=== PATIENT | female | born 1995 | race Caucasian/White ===

== ENCOUNTER 2018-01-19 13:32 | Emergency (ER) | payer OTHER ==
--- NOTE | 2018-01-19 14:52 | PDOC ---
Rapid Medical Evaluation Medical Evaluation: Allergies Allergy/AdvReac Type Severity Reaction Status Date / Time No Known Allergies Allergy Verified 01/11/16 09:00 01/19/18 14:48 I have performed a brief in-person evaluation of this patient. The patient presents with a chief complaint of: lightheaded/shaky, no LOC, was recently dx with anemia by Dr. Ramirez Pertinent physical exam findings: well appearing I have ordered the following: CBC, CMP, T&S The patient will proceed to the ED for further evaluation. Discharge Disposition - Diagnosis Lightheadedness - Referrals - Patient Instructions - Post Discharge Activity
[2018-01-19 14:54] VITALS: BP 120/66; PULSE 91; TEMP 98.4; BMI 18.6
[2018-01-19 15:10] LABS: BASO % 0.4 % (0-2.0); EOS % 0.5 % (0-4.5); HEMATOCRIT 40.1 % (32.4-45.2); HEMOGLOBIN 13.3 GM/dL (10.7-15.3); LYMPH % 29.4 % (8-40); MCH 28.1 pg (25.7-33.7); MCHC 33.1 g/dl (32.0-36.0); MEAN CELL VOLUME 84.9 fl (80-96); MONO % 8.9 % (3.8-10.2); NEUT % 60.8 % (42.8-82.8); PLATELET COUNT 230 K/MM3 (134-434); RBC 4.72 M/mm3 (3.60-5.2); RDW 13.4 % (11.6-15.6); WHITE BLOOD COUNT 4.7 K/mm3 (4.0-10.0)
--- NOTE | 2018-01-19 15:30 | PDOC ---
History of Present Illness - General Chief Complaint: Lightheaded Stated Complaint: ANXIETY, LIGHTHEADED Time Seen by Provider: 01/19/18 14:53 History Source: Patient Exam Limitations: No Limitations - History of Present Illness Initial Comments: 01/19/18 15:30 22F lightheaded/shaky, no LOC, was recently dx with anemia by Dr. Ramirez. Patient feels like this is a panic attack as she had one back in December but not as bad. No obvious stressors. She didn't have the time to see a therapist/psychiatrist yet. Denies chest pain , sob,. Not on control. 01/19/18 17:20 Past History - Past Medical History Allergies/Adverse Reactions: Allergies Allergy/AdvReac Type Severity Reaction Status Date / Time No Known Allergies Allergy Verified 01/11/16 09:00 Home Medications: Ambulatory Orders NK [No Known Home Medication] 01/19/18 Anemia: Yes Asthma: Yes COPD: No - Suicide/Smoking/Psychosocial Hx Smoking History: Never smoked Have you smoked in the past 12 months: No Information on smoking cessation initiated: No Hx Alcohol Use: No Drug/Substance Use Hx: No Substance Use Type: None Review of Systems - Review of Systems Able to Perform ROS?: Yes Is the patient limited Turkmen proficient: No Constitutional: No: Symptoms Reported HEENTM: No: Symptoms Reported Respiratory: No: Symptoms reported Cardiac (ROS): No: Symptoms Reported ABD/GI: No: Symptoms Reported : No: Symptoms Reported Musculoskeletal: No: Symptoms Reported Integumentary: No: Symptoms Reported Neurological: No: Symptoms reported Endocrine: No: Symptoms Reported All Other Systems: Reviewed and Negative *Physical Exam - Vital Signs Last Vital Signs Temp Pulse Resp BP Pulse Ox 98.4 F 91 H 20 120/66 99 01/19/18 14:51 01/19/18 14:51 01/19/18 14:51 01/19/18 14:51 01/19/18 14:51 - Physical Exam General Appearance: Yes: Nourished, Appropriately Dressed. No: Apparent Distress HEENT: positive: EOMI, BULMARO Respiratory/Chest: positive: Lungs Clear, Normal Breath Sounds. negative: Chest Tender Cardiovascular: positive: Regular Rhythm, Regular Rate, S1, S2 Gastrointestinal/Abdominal: positive: Normal Bowel Sounds, Flat, Soft. negative : Tender Musculoskeletal: positive: Normal Inspection. negative: CVA Tenderness Extremity: positive: Normal Capillary Refill, Normal Inspection Integumentary: positive: Normal Color, Dry, Warm ED Treatment Course - LABORATORY CBC & Chemistry Diagram: 01/19/18 15:00 01/19/18 15:00 - ADDITIONAL ORDERS Additional order review: 01/19/18 15:00 RBC 4.72 MCV 84.9 MCHC 33.1 RDW 13.4 MPV 9.0 Neutrophils % 60.8 Lymphocytes % 29.4 Monocytes % 8.9 Eosinophils % 0.5 Basophils % 0.4 Medical Decision Making - Medical Decision Making 01/19/18 17:22 Patient labs within normal limits. No anemia or abnormal chemistry, EKG: normal sinus with right deviation., Not . ok to dc *DC/Admit/Observation/Transfer Diagnosis at time of Disposition: Lightheadedness - Discharge Dispostion Disposition: HOME Condition at time of disposition: Good Admit: No - Referrals Referrals: Kayleigh Nava MD [Primary Care Provider] - - Patient Instructions Printed Discharge Instructions: Anxiety and Panic Attacks (Alternative Therapy) , DI for Panic Disorder Additional Instructions: Come back to the ED for any new, worsening or concerning symptoms. Follow up with your primary care provider. - Post Discharge Activity
[2018-01-19 15:34] LABS: ALBUMIN 4.1 g/dl (3.4-5.0); ALK PHOS 62 U/L (45-117); ANION GAP 6 (8-16); BILIRUBIN,TOTAL 1.1 mg/dL (0.2-1.0); BLOOD UREA NITROGEN 11 mg/dL (7-18); CALCIUM 8.3 mg/dL (8.5-10.1); CHLORIDE 105 mmol/L (98-107); CO2 27 mmol/L (21-32); CREATININE 0.8 mg/dL (0.55-1.02); GLUCOSE,RANDOM 91 mg/dL (74-106); POTASSIUM 3.9 mmol/L (3.5-5.1); SGOT/AST 16 U/L (15-37); SGPT/ALT 15 U/L (12-78); SODIUM 138 mmol/L (136-145); TOT PROT 7.9 g/dl (6.4-8.2)
--- NOTE | 2018-01-19 16:19 | PDOC ---
Attending Attestation - HPI HPI: 01/19/18 16:45 The patient is a 22 year old female with a significant PMH of iron deficiency who presents to the emergency department with lightheadedness and shaking this morning. The patient reports she was worried this might be related to her anemia prompting her to come to the ER. The patient states she had a panic attack in August and reports the shaking felt similar. The patient is not currently seeing a psychiatrist. The patient denies chest pain, shortness of breath, headache and dizziness. Denies fever, chills, nausea, vomit, diarrhea and constipation. Denies dysuria, frequency, urgency and hematuria. Allergies: NKA Past surgical history: None reported. Social history: No reported alcohol, cigarette or drug use. PCP: Dr. Shea <Helene Cool - Last Filed: 01/19/18 16:45> - Resident Resident Name: Nasir Gregorio - ED Attending Attestation I have performed the following: I have examined & evaluated the patient, The case was reviewed & discussed with the resident, I agree w/resident's findings & plan, Exceptions are as noted - Physicial Exam PE: GENERAL: Awake, alert, and fully oriented, in no acute distress HEAD: No signs of trauma EYES: PERRLA, EOMI, sclera anicteric, conjunctiva clear ENT: Auricles normal inspection, hearing grossly normal, nares patent, oropharynx clear without exudates. Moist mucosa NECK: Normal ROM, supple, no lymphadenopathy, JVD, or masses LUNGS: Breath sounds equal, clear to auscultation bilaterally. No wheezes, and no crackles HEART: Regular rate and rhythm, normal S1 and S2, no murmurs, rubs or gallops ABDOMEN: Soft, nontender, normoactive bowel sounds. No guarding, no rebound. No masses EXTREMITIES: Normal range of motion, no edema. No clubbing or cyanosis. No cords, erythema, or tenderness NEUROLOGICAL: Cranial nerves II through XII grossly intact. Normal speech, normal gait SKIN: Warm, Dry, normal turgor, no rashes or lesions noted. - Medical Decision Making Pt with episode of shaking, LH this AM. No acute findings on exam. Labs wnl. Will obtain EKG and likely DC home. <Melanie Leonard - Last Filed: 01/20/18 11:55>
--- NOTE | 2018-01-20 12:58 | EKG ---
Test Reason : Blood Pressure : / mmHG Vent. Rate : 093 BPM Atrial Rate : 093 BPM P-R Int : 112 ms QRS Dur : 074 ms QT Int : 356 ms P-R-T Axes : 068 094 031 degrees QTc Int : 442 ms NORMAL SINUS RHYTHM RIGHTWARD AXIS BORDERLINE ECG NO PREVIOUS ECGS AVAILABLE Confirmed by Bryn Calvillo MD ([id number]) on 01/20/2018 12:58:07 PM Referred By: Confirmed By:Bryn Calvillo MD
== END 2018-01-19 17:20 | disposition home or self-care (01) ==
LOC: JER 13:32
DX: R42 Dizziness and giddiness (principal); F41.8 Other specified anxiety disorders; J45.909 Unspecified asthma, uncomplicated; D64.9 Anemia, unspecified
CPT/HCPCS: 36415; 80053; 84702; 85025; 86850; 86900; 86901; 93005; 93010; 99282-25

== ENCOUNTER 2018-10-23 17:24 | Emergency (ER) | payer OTHER ==
[2018-10-23] MEDS ORDERED: ALBUTEROL SO4 2.5/IPRATROPIUM 0.5 INH SOL 3 ML VIAL.NEB. NEB ONE (17:57)
--- NOTE | 2018-10-23 17:57 | PDOC ---
Rapid Medical Evaluation Medical Evaluation: Allergies Allergy/AdvReac Type Severity Reaction Status Date / Time No Known Allergies Allergy Verified 01/11/16 09:00 I have performed a brief in-person evaluation of this patient. The patient presents with a chief complaint of: SOB from 10 minutes ago along with chest tightness Hx of asthma (never intubated, never hospitalized) Used inhaler at home without much help States sxs feel like her asthma On PE, lungs CTA Though lungs clear, will give trial of duoneb to see if it helps patients The patient will proceed to the ED for further evaluation. 10/23/18 17:53
[2018-10-23 18:03] VITALS: BP 126/73; PULSE 107; TEMP 97.9; BMI 20.5
[2018-10-23] MEDS ORDERED: methylPREDNISolone NA SUCC 125 MG/2 ML VIAL IM ONE (18:16)
[2018-10-23] MEDS ORDERED: methylPREDNISolone NA SUCC 125 MG/2 ML VIAL ONE (18:26)
--- NOTE | 2018-10-23 18:30 | PDOC ---
History of Present Illness - General Chief Complaint: Shortness of Breath Stated Complaint: ASTHMA Time Seen by Provider: 10/23/18 18:12 History Source: Patient Exam Limitations: Clinical Condition - History of Present Illness Initial Comments: 10/23/18 18:26 Patient with history of asthma present with complaint of wheezing and chest tightness since this morning. Patient reported nasal congestion and increased chest tightness with deep breathing or shortness of breath. Patient denies any other symptoms. Patient denies dizziness, palpitation, nausea, vomiting or lightheadedness. Timing/Duration: 4-6 hours Past History - Past Medical History Allergies/Adverse Reactions: Allergies Allergy/AdvReac Type Severity Reaction Status Date / Time No Known Allergies Allergy Verified 10/23/18 17:53 Home Medications: Ambulatory Orders Albuterol Sulfate Inhaler - [Ventolin HFA Inhaler -] 1 - 2 inh PO QID 10/23/18 Ferrous Sulfate 325 mg PO BID 10/23/18 Loratadine 10 mg PO DAILY #10 capsule 10/23/18 Prednisone 10 mg PO BID 5 Days #10 tablet 10/23/18 Anemia: Yes Asthma: Yes COPD: No - Suicide/Smoking/Psychosocial Hx Smoking History: Never smoked Have you smoked in the past 12 months: No Hx Alcohol Use: No Drug/Substance Use Hx: No Substance Use Type: None Review of Systems - Review of Systems Able to Perform ROS?: Yes Is the patient limited Thai proficient: No Constitutional: No: Chills, Fever HEENTM: No: Symptoms Reported Respiratory: Yes: Symptoms reported, See HPI, Shortness of Breath, Wheezing. No : Cough, Orthopnea, SOB with Exertion, SOB at Rest, Stridor, Productive cough, Hemoptysis, Other Cardiac (ROS): No: Symptoms Reported, See HPI, Chest Pain, Edema, Irregular Heart Rate, Lightheadedness, Palpitations, Syncope, Chest Tightness, Other ABD/GI: No: Symptoms Reported, See HPI, Abdominal Distended, Abd. Pain w/ defecation, Blood Streaked Bowels, Constipated, Diarrhea, Difficulty Swallowing , Nausea, Poor Appetite, Poor Fluid Intake, Rectal Bleeding, Vomiting, Indigestion, Abdominal cramping, Tarry Stools, Other All Other Systems: Reviewed and Negative *Physical Exam - Vital Signs Last Vital Signs Temp Pulse Resp BP Pulse Ox 97.9 F 107 H 18 126/73 100 10/23/18 18:01 10/23/18 18:01 10/23/18 18:01 10/23/18 18:01 10/23/18 18:01 - Physical Exam Comments: 10/23/18 18:30 GENERAL: Well developed, well nourished. Awake and alert. No acute distress. HEENT: Normocephalic, atraumatic. PERRLA, EOMI. No conjunctival pallor. Sclera are non-icteric. Moist mucous membranes. Oropharynx is clear. NECK: Supple. Full ROM. CARDIOVASCULAR: Regular rate and rhythm. No murmurs, rubs, or gallops. Distal pulses are 2+ and symmetric. PULMONARY: mild diffused wheezing.No evidence of respiratory distress. No rales or rhonchi. ABDOMINAL: Soft. Non-tender. Non-distended. No rebound or guarding. No organomegaly. Normoactive bowel sounds. MUSCULOSKELETAL Normal range of motion at all joints. EXTREMITIES: No cyanosis. No clubbing. No edema. No calf tenderness. SKIN: Warm and dry. Normal capillary refill. No rashes. No jaundice. NEUROLOGICAL: Alert, awake, appropriate. Gait is normal without ataxia. PSYCHIATRIC: Cooperative. Good eye contact. Appropriate mood General Appearance: Yes: Nourished, Appropriately Dressed. No: Apparent Distress ED Treatment Course - Medications Given in the ED: ED Medications Discontinued Medications Generic Name Dose Route Start Last Admin Trade Name Freq PRN Reason Stop Dose Admin Albuterol/Ipratropium 1 amp 10/23/18 17:57 10/23/18 18:03 Duoneb - NEB 10/23/18 17:58 1 amp ONCE ONE Administration Medical Decision Making - Medical Decision Making 10/23/18 18:27 Patient with history of asthma present with complaint of wheezing and shortness of breath since this morning. Exam significant for mild diffuse wheezing without respiratory distress. Solu-Medrol 60 mg IM and nebulizer treatment with Atrovent and albuterol given which helped her bronchospasm. Patient to be discharged home on prednisone and antihistamine with PCP follow-up *DC/Admit/Observation/Transfer Diagnosis at time of Disposition: Bronchospasm Asthma Qualifiers: Asthma severity: mild Asthma persistence: intermittent Asthma complication type : with acute exacerbation Qualified Code(s): J45.21 - Mild intermittent asthma with (acute) exacerbation - Discharge Dispostion Disposition: HOME Condition at time of disposition: Stable Decision to Admit order: No - Prescriptions Prescriptions: Loratadine 10 mg PO DAILY #10 capsule Prednisone 10 mg PO BID 5 Days #10 tablet - Referrals Referrals: Zackary Ennis MD [Staff Physician] - - Patient Instructions Printed Discharge Instructions: Asthma -- Adult Additional Instructions: take medications as prescribed. follow-up with referred pulmonology if symptoms persists - Post Discharge Activity
== END 2018-10-23 19:34 | disposition home or self-care (01) ==
LOC: JERFT 17:24
PROC: 3E0F7GC Introduction of Other Therapeutic Substance into Respiratory Tract, Via Natural or Artificial Opening (ICD-10-PCS; principal; 2018-10-23)
PROC: 3E0233Z Introduction of Anti-inflammatory into Muscle, Percutaneous Approach (ICD-10-PCS; 2018-10-23)
DX: J45.21 Mild intermittent asthma with (acute) exacerbation (principal)
CPT/HCPCS: 94640; 96372; 99281-25